=== PATIENT | male | born 1980 | race American Indian/Alaskan Native ===

== ENCOUNTER 2016-05-30 05:59 | Day surgery (SDC) | payer OTHER, MEDICAID ==
[2016-05-30] MEDS ORDERED: LIDOCAINE 1% 5 ML SDV ONE (06:31)
[2016-05-30] MEDS ORDERED: IOPAMIDOL (ISOVUE-300) 150 ML BTL IV ONE (07:11)
[2016-05-30] MEDS ORDERED: BUPIVACAINE/EPI 0.25% 30 ML SDV ONE (07:11)
[2016-05-30] MEDS ORDERED: PROPOFOL 200 MG/20 ML VIAL ONE ×2 (07:13→07:32)
[2016-05-30] MEDS ORDERED: fentaNYL 250 MCG/5 ML INJ ONE (07:14)
[2016-05-30] MEDS ORDERED: ceFAZolin 2 GM/DEXTROSE 100 ML IV ONE (07:30)
[2016-05-30] MEDS ORDERED: fentaNYL 100 MCG/2 ML INJ ONE ×2 (09:31→10:36)
[2016-05-30] MEDS ORDERED: ONDANSETRON 4 MG/2 ML VIAL ONE (09:31)
[2016-05-30] MEDS ORDERED: OXYCODONE/APAP 5/325 TAB ONE (10:45)
--- NOTE | 2016-05-30 12:54 | GOP ---
[f rep st] OPERATIVE REPORT DATE OF OPERATION: 05/30/2016 SURGEON: Bridger Ahuja MD MANDREL MAKER: Key Guido PA-C. ANESTHESIA: General endotracheal. ANESTHESIOLOGIST: Dr. Ramirez. PREOPERATIVE DIAGNOSIS: Biliary colic. POSTOPERATIVE DIAGNOSIS: Acute on chronic cholecystitis. PROCEDURE PERFORMED: Laparoscopic cholecystectomy. FINDINGS: Gallbladder was shriveled and dense, very difficult to retract over the liver proper. The cystic duct appeared dilated and/or absent as it appeared the gallbladder just ended blindly at the junction of the common duct. The cystic duct/infundibulum of the gallbladder was successfully amputated with an Endo-RADHA stapler. SPECIMENS: Gallbladder. ESTIMATED BLOOD LOSS: 10 cc. DESCRIPTION OF PROCEDURE: The patient was greeted in the preoperative suite. Once again, risks, benefits, and alternatives were discussed. Consent was signed. He was then brought back to the operative suite, placed on the OR table in supine position. After all anesthesia machines were on and functioning , a World Health Organization time-out was performed. General endotracheal anesthesia was then induced without incident. Antibiotics were given on-call to the operating room. The patient's abdomen was then widely prepped and draped in typical sterile fashion. I attempted to enter the abdomen via a stab incision in the left upper quadrant but was unsuccessful in obtaining pneumoperitoneum. I then made an infraumbilical incision vertically through which the Veress needle passed and I obtained insufflation and pneumoperitoneum to 15 mmHg CO2, which was well tolerated. Through this, I placed a 10 mm port, visualized the remainder of the abdominal contents which appeared to be normal. I placed 3 additional 5 mm ports, 1 subxiphoid, 2 right upper quadrant, all under direct visualization. I grasped the dome of the gallbladder which again was very shriveled and difficult to retract. Once this was done, I grasped the infundibulum, and via both blunt dissection and electrocautery identified 2 structures leading toward the gallbladder. Again, it appeared that the cystic duct was the exact same size as the infundibulum of the gallbladder and/or absent. I did identify the common duct just adjacent to it. In order to obtain my critical view, I then, in a dome down approach, removed the remainder of the gallbladder off the liver bed. At this point in time, I had 2 and only 2 structures, connecting the gallbladder. The artery was successfully ligated with clips and divided. Again, I identified no other structures leading toward the gallbladder and identified the course of the common hepatic and common bile ducts. I then upsized my subxiphoid port through this. I placed an Endo-RADHA 35 stapler and successfully amputated the gallbladder from its common duct confluence, taking great care not to narrow the common duct. Once this was done , I placed it in an EndoCatch bag and removed it. Hemostasis was achieved in the gallbladder fossa with electrocautery and gentle pressure. The right upper quadrant was irrigated and suctioned noting excellent hemostasis. The infraumbilical port site was then closed with running 0 Vicryl, noting excellent fascial reapproximation. The subxiphoid port was closed in the same fashion. The skin was closed with Monocryl over which Dermabond was placed. The patient was then extubated in the operative suite and taken to the PACU in satisfactory condition. COUNTS: All counts were reported as correct x2. /[id number]/MODL MTDD
== END 2016-05-30 11:30 | disposition home or self-care (01) ==
LOC: FSGY 05:59
PROVIDERS: ATTEND Surgery
PROC: 0FT44ZZ Resection of Gallbladder, Percutaneous Endoscopic Approach (ICD-10-PCS; principal; 2016-05-30 07:30)
DX: K81.2 Acute cholecystitis with chronic cholecystitis (principal); Z86.39 Personal history of other endocrine, nutritional and metabolic disease
CPT/HCPCS: J0690; J2405; J2704; J3010; Q9967

== ENCOUNTER 2016-06-10 13:03 | Inpatient (IN) | payer OTHER, MEDICAID ==
--- NOTE | 2016-06-10 14:13 | EDPHY ---
H & P Stated Complaint: choly 05/30 continued jaundice/elevated liver enzymes ruq abd pain Time Seen by Provider: 06/10/16 14:10 - Personal History Current Tetanus/Diphtheria Vaccine: Yes - Medical/Surgical History Hx Asthma: No Hx Chronic Respiratory Disease: No Hx Diabetes: No Hx Cardiac Disease: No Hx Renal Disease: No Hx Cirrhosis: No Hx Alcoholism: No Hx HIV/AIDS: No Hx Splenectomy or Spleen Trauma: No Other PMH: choly/graves disease - Social History Smoking Status: Never smoked Constitutional: Initial Vital Signs Temperature (C) 36.7 C 06/10/16 13:11 Heart Rate 71 06/10/16 13:11 Respiratory Rate 17 06/10/16 13:11 Blood Pressure 116/68 06/10/16 13:11 O2 Sat (%) 97 06/10/16 13:11 O2 Delivery Mode Room Air Allergies/Adverse Reactions: No Known Allergies Allergy (Verified 06/10/16 13:11) Home Medications: Medication Instructions Recorded Levothyroxine [Synthroid 137 mcg 137 mcg PO DAILY@0600 06/10/16 (*)] Medical Decision Making - Diagnostics Imaging Results: Imaging Impressions Abdomen MRI 06/10/16 14:22 Impression: 1. Status post cholecystectomy with intrahepatic bile duct dilatation and choledocholithiasis. There also features suggestive of left hepatic lobe cholangitis. 2. Mild hepatosplenomegaly. Findings were discussed with Vic Frances MD at 19:34, at 06/10/2016. Imaging: Discussed imaging studies w/ orthopedically impaired teacher Radiologist ED Course/Re-evaluation: CHIEF COMPLAINT: Jaundice, abdominal pain. HISTORY OF PRESENT ILLNESS: The patient is a 36-year-old male status post cholecystectomy 05/30 who presents with jaundiced skin and eyes, RUQ pain, and dysuria. He felt well after the surgery for the first few days. He then became itchy all over. The RUQ pain began to radiate down to his groin and he developed dysuria and tea-colored urine. He denies shortness of breath, vomiting , diarrhea, or other complaints. REVIEW OF SYSTEMS: A 10 point review of systems was performed and is negative with the exception of the elements mentioned in the history of present illness. PHYSICAL EXAM: HR, BP, O2 Sat, RR. Temp noted General Appearance: Alert, well hydrated, appropriate, and non-toxic appearing. Head: Atraumatic without scalp tenderness or obvious injury Eyes: Pupils equal, round, reactive to light and accommodation, EOMI, no trauma , no injection. Ears: Clear bilaterally, no perforation, normal landmarks Nose: Atraumatic, no rhinorrhea, clear. Throat: There is no erythema or exudates, no lesions, normal tonsils, mucus membranes moist. Neck: Supple, 2+ carotid upstroke, nontender, no lymphadenopathy. Respiratory: No retractions, no distress, no wheezes, and no accessory muscle use. Lungs are clear to auscultation bilaterally. Cardiovascular: Regular rate and rhythm, no murmurs, rubs, or gallops. Bilateral carotid, radial, dorsalis pedis, and posterior tibial pulses intact. Good capillary refill all extremities. Gastrointestinal: Abdomen is soft, nontender, non-distended, no masses, no rebound, no guarding, no peritoneal signs. Musculoskeletal: Normal active ROM of all extremities, atraumatic. Neurological: Alert, appropriate, and interactive. The patient has normal DTRs and non-focal cranial nerves, motor, sensory, and cerebellar exam. Skin: No rashes, good turgor, no nodules on palpation. Past medical history: Grave's Disease. Past surgical history: Cholecystectomy. Family history: N/A. Social history: . DIAGNOSTICS/PROCEDURES/CRITICAL CARE TIME: Study: MRCP Indication: Postop pain, jaundice. Results: See Image Results section for official report. The study was read by the radiologist, Dr. Clark. I viewed the images myself on the PACS system. DIFFERENTIAL DIAGNOSIS: The differential diagnosis includes but is not limited to postoperative complication, retained stone, UTI. MEDICAL DECISION MAKIN-year-old male status post cholecystectomy 05/30 presents with jaundice, abdominal pain, and dysuria. I am concerned for a retained stone or other surgical complication. An IV was established and labs ordered. Plan to consult with the patient's surgeon. 1419: Consulted with Dr. Ahuja, surgery. He recommends MRCP. Bilirubin 6.4. AST 269, ALT 498, Alkaline phosphatase 343. Lipase 892. 1724: Dr. Ahuja, surgery, in the ED consulting with the patient. 1934: MRCP results conveyed to me by Dr. Clark, radiology. He reports at least 2 retained stones and intrahepatic ductal dilation. 1939: Consulted with Dr. Ahuja, surgery and notified him of the MRCP results. 1941: Reassessed patient. Discussed results of MRCP with him and answered his questions. - Data Points Laboratory Results: Laboratory Results 06/10/16 14:17 05 14:17 06/10/16 06/10/16 14:17 14:17 WBC 8.00 10^3/uL 10^3/uL (3.80-9.50) RBC 5.26 10^6/uL 10^6/uL (4.40-6.38) Hgb 15.9 g/dL g/dL (13.7-17.5) Hct 45.9 % % (40.0-51.0) MCV 87.3 fL fL (81.5-99.8) MCH 30.2 pg pg (27.9-34.1) MCHC 34.6 g/dL g/dL (32.4-36.7) RDW 13.2 % % (11.5-15.2) Plt Count 335 10^3/uL 10^3/uL (150-400) MPV 9.6 fL fL (8.7-11.7) Neut % (Auto) 62.1 % % (39.3-74.2) Lymph % (Auto) 27.4 % % (15.0-45.0) Gosper % (Auto) 8.3 % % (4.5-13.0) Eos % (Auto) 1.3 % % (0.6-7.6) Baso % (Auto) 0.5 % % (0.3-1.7) Nucleat RBC Rel Count 0.0 % % (0.0-0.2) Absolute Neuts (auto) 4.98 10^3/uL 10^3/uL (1.70-6.50) Absolute Lymphs (auto) 2.19 10^3/uL 10^3/uL (1.00-3.00) Absolute Monos (auto) 0.66 10^3/uL 10^3/uL (0.30-0.80) Absolute Eos (auto) 0.10 10^3/uL 10^3/uL (0.03-0.40) Absolute Basos (auto) 0.04 10^3/uL 10^3/uL (0.02-0.10) Absolute Nucleated RBC 0.00 10^3/uL 10^3/uL (0-0.01) Immature Gran % 0.4 % % (0.0-1.1) Immature Gran # 0.03 10^3/uL 10^3/uL (0.00-0.10) Sodium 140 mEq/L mEq/L (134-144) Potassium 3.0 mEq/L L mEq/L (3.5-5.2) Chloride 109 mEq/L mEq/L (97-110) Carbon Dioxide 20 mEq/l L mEq/l (22-31) Anion Gap 11 mEq/L mEq/L (8-16) BUN 15 mg/dL mg/dL (7-23) Creatinine 0.7 mg/dL mg/dL (0.7-1.3) Estimated GFR > 60 Glucose 79 mg/dL mg/dL (70-100) Calcium 7.5 mg/dL L mg/dL (8.5-10.4) Total Bilirubin 6.4 mg/dL H mg/dL (0.1-1.4) Conjugated Bilirubin 5.4 mg/dL H mg/dL (0.0-0.5) Unconjugated Bilirubin 1.0 mg/dL mg/dL (0.0-1.1) AST 269 IU/L H IU/L (17-59) ALT 498 IU/L H IU/L (21-72) Alkaline Phosphatase 343 IU/L H IU/L (38-126) Total Protein 6.3 g/dL g/dL (6.3-8.2) Albumin 3.7 g/dL g/dL (3.5-5.0) Lipase 892.0 IU/L H IU/L (23-300) Medications Given: Discontinued Medications Fentanyl (Sublimaze) 100 mcg IVP EDNOW ONE Stop: 06/10/16 15:44 Last Admin: 06/10/16 15:50 Dose: 100 mcg Sodium Chloride (Ns) 1,000 mls @ 0 mls/hr IV ONCE ONE PRN Reason: Wide Open Stop: 06/10/16 14:20 Last Admin: 06/10/16 14:23 Dose: 1,000 mls Sodium Chloride (Ns) 1,000 mls @ 0 mls/hr IV ONCE ONE PRN Reason: Wide Open Stop: 06/10/16 14:20 Last Admin: 06/10/16 14:40 Dose: 1,000 mls Departure - Departure Disposition: To OP Cath/Surgery Clinical Impression: Postoperative jaundice Condition: Fair Report Scribed for: Vic Frances Report Scribed by: Marquis Tinajero Date of Report: 06/10/16 Time of Report: 14:41
[2016-06-10] MEDS ORDERED: NS 1,000 ML IV ONE ×2 (14:19)
[2016-06-10 14:28] LABS: % IMMATURE GRANULYOCYTES 0.4 % (0.0-1.1); ABSOLUTE IMMATURE GRANULOCYTES 0.03 10^3/uL (0.00-0.10); ADD DIFF? NO; ADD MORPH? NO; ADD SCAN? NO; ATYPICAL LYMPHOCYTE FLAG 0 (0-99); FRAGMENT RBC FLAG 0 (0-99); HEMATOCRIT 45.9 % (40.0-51.0); HEMOGLOBIN 15.9 g/dL (13.7-17.5); LEFT SHIFT FLG 10 (0-99); LIPEMIA HEMOLYSIS FLAG 90 (0-99); MEAN CELL HEMOGLOBIN 30.2 pg (27.9-34.1); MEAN CELL HEMOGLOBIN CONCENTR. 34.6 g/dL (32.4-36.7); MEAN CELL VOLUME 87.3 fL (81.5-99.8); MEAN PLATELET VOLUME 9.6 fL (8.7-11.7); PLATELET CLUMPS FLAG 0 (0-99); PLATELET COUNT 335 10^3/uL (150-400); RED BLOOD CELL COUNT 5.26 10^6/uL (4.40-6.38); RED CELL DISTRIBUTION WIDTH 13.2 % (11.5-15.2)
[2016-06-10 14:59] LABS: ALANINE AMINOTRANSFERASE 498 IU/L (21-72); ALBUMIN 3.7 g/dL (3.5-5.0); ALKALINE PHOSPHATASE 343 IU/L (38-126); ANION GAP 11 mEq/L (8-16); ASPARTATE AMINOTRANSFERASE 269 IU/L (17-59); BILIRUBIN,TOTAL 6.4 mg/dL (0.1-1.4); BILIRUBIN-CONJUGATED 5.4 mg/dL (0.0-0.5); CALCIUM 7.5 mg/dL (8.5-10.4); CARBON DIOXIDE 20 mEq/l (22-31); CHLORIDE 109 mEq/L (97-110); CREATININE 0.7 mg/dL (0.7-1.3); GLOMERULAR FILTRATION RATE > 60; GLUCOSE 79 mg/dL (70-100); SODIUM 140 mEq/L (134-144); TOTAL PROTEIN 6.3 g/dL (6.3-8.2)
[2016-06-10] MEDS ORDERED: fentaNYL 100 MCG/2 ML INJ IVP ONE (15:43)
[2016-06-10] MEDS ORDERED: fentaNYL 100 MCG/2 ML INJ ONE (15:45)
[2016-06-10] MEDS ORDERED: ACETAMINOPHEN 325 MG TAB PO PRN (17:42)
[2016-06-10] MEDS ORDERED: ONDANSETRON DISINTEGRATING 4 MG TAB PO PRN (17:42)
[2016-06-10] MEDS ORDERED: HYDROmorphONE/DILAUDID 1 MG/ML SYR IVP PRN (17:42)
[2016-06-10] MEDS ORDERED: ONDANSETRON 4 MG/2 ML VIAL IVP PRN (17:42)
[2016-06-10] MEDS ORDERED: D5W 1/2 NS W/ 20 KCl/L 1,000 ML IV SCH (17:45)
--- NOTE | 2016-06-10 18:25 | GHP ---
[f rep st] HISTORY AND PHYSICAL DATE OF ADMISSION: 06/10/2016 CHIEF COMPLAINT: Abdominal pain and jaundice. HISTORY OF PRESENT ILLNESS: This is a 36-year-old male, who underwent a laparoscopic cholecystectom y by myself on May 30. Since that time, he states that he has felt well for the most part, ramez floyd, this past Thursday described some fairly excruciating right upper quadrant abdominal pain for which he called the Call Service. At that point in time, he spoke with 1 of my partners covering call, jerad bhatia asked him to come into the emergency room to be evaluated. The pain subsided, he felt better and decided that he did not want to be evaluated. The pain subsequently recurred last evening and he r eported to Urgent Care earlier today. Per his report, at the urgent care center, liver function enz ymes were performed and showed an elevation of his total bilirubin. I did speak with the urgent car e provider. I asked that he be transferred here. On further evaluation, the patient states that ot her than the pain last Thursday and again last evening, he has felt well. He continues to tolerate a regular diet, but that his does also note that he is jaundiced. He endorses some dark-colored urine. Denies having any acholic stools. His abdomen otherwise is soft, nondistended, nontender at this point in time. He denies having fevers or chills, and otherwise feels well other than the int ermittent abdominal pain and the worrisome jaundice. PAST MEDICAL HISTORY: Significant for Graves disease. PAST SURGICAL HISTORY: Laparoscopic cholecystectomy performed on May 30. CURRENT MEDICATIONS: Synthroid. ALLERGIES: None. REVIEW OF SYSTEMS: A full 10-point review was performed and unless explicitly stated above, is othe rwise negative. PHYSICAL EXAM: VITAL SIGNS: Blood pressure 107/59, heart rate 71, and he is 96% on room air. GENE RAL: He is alert and oriented, in no acute distress. He does appear jaundiced. HEENT: He does jones ve scleral icterus. His extraocular movements are intact. LUNGS: Clear to auscultation bilaterall y. CARDIOVASCULAR: He has a regular rate and rhythm, and he is hemodynamically stable. ABDOMEN: Soft, nondistended, nontender. His laparoscopic incision sites remain covered with Dermabond and ar e clean, dry, and intact. He has no rebound tenderness or guarding. He is relatively nontender to palpation in the right upper quadrant. EXTREMITIES: Warm and well perfused. LABS: White blood cell count 8, no left shift. H and H stable. Chemistries: T-bilirubin is eleva lety at 6, mostly direct at 5.4, his AST and ALT are 269 and 498, and his lipase is also elevated at 892. IMAGING: MRCP pending. ASSESSMENT AND PLAN: A 36-year-old male, status post laparoscopic cholecystectomy with postoperativ e jaundice. I discussed the findings with the patient today. I told him that he will be admitted f or further workup and that the MRCP will be helpful. More than likely, he has a retained stone but we will further delineate the anatomy with the MR. I have also contacted Dr. Franklin of Gastroen terology who will see the patient and more than likely perform the ERCP for what is likely a retaine d stone, but we will continue to manage him as such. All of his questions were answered. I anticip ate that he will be here more than 2 midnights, receiving care. /[id number]/MODL
[2016-06-10 22:09] LABS: APTT 28.4 SEC (23.0-38.0); INR 0.95 (0.83-1.16); PROTIME(PATIENT) 12.6 SEC (12.0-15.0)
[2016-06-10] MEDS: HYDROCODONE/APAP 5/325 TAB PO PRN (22:57)
[2016-06-11 05:15] LABS: % IMMATURE GRANULYOCYTES 0.4 % (0.0-1.1); ABSOLUTE IMMATURE GRANULOCYTES 0.02 10^3/uL (0.00-0.10); ADD DIFF? NO; ADD MORPH? NO; ADD SCAN? NO; ATYPICAL LYMPHOCYTE FLAG 0 (0-99); FRAGMENT RBC FLAG 0 (0-99); HEMATOCRIT 39.7 % (40.0-51.0); HEMOGLOBIN 13.7 g/dL (13.7-17.5); LEFT SHIFT FLG 10 (0-99); LIPEMIA HEMOLYSIS FLAG 90 (0-99); MEAN CELL HEMOGLOBIN 30.2 pg (27.9-34.1); MEAN CELL HEMOGLOBIN CONCENTR. 34.5 g/dL (32.4-36.7); MEAN CELL VOLUME 87.6 fL (81.5-99.8); PLATELET CLUMPS FLAG 0 (0-99); PLATELET COUNT 255 10^3/uL (150-400); RED BLOOD CELL COUNT 4.53 10^6/uL (4.40-6.38); RED CELL DISTRIBUTION WIDTH 13.2 % (11.5-15.2)
[2016-06-11 05:31] LABS: ALBUMIN 4.1 g/dL (3.5-5.0); BILIRUBIN,TOTAL 7.2 mg/dL (0.1-1.4); BILIRUBIN-CONJUGATED 6.1 mg/dL (0.0-0.5); BILIRUBIN-UNCONJUGATED 1.1 mg/dL (0.0-1.1); TOTAL PROTEIN 7.2 g/dL (6.3-8.2)
[2016-06-11] MEDS: LEVOTHYROXINE 137 MCG TAB PO SCH (05:41)
--- NOTE | 2016-06-11 10:06 | SOAPPROG ---
SOAP Progress Note Assessment/Plan: Assessment/Plan: 36 Y M s/p lap elisabet 05/30, now c likely choledocholithiasis. ERCP later today with GI. Continue NPO. S: itchy from jaundice, no pain or nausea now. O: alert, nad, wdwn +scleral icterus ctab rrr abd soft, nt, inc cdi, no erythema 06/11/16 10:05 Objective: Vital Signs Temp Pulse Resp BP Pulse Ox 37.1 C 58 L 20 105/67 98 06/11/16 08:00 06/11/16 08:00 06/11/16 08:00 06/11/16 08:00 06/11/16 08:00 Laboratory Results 06/11/16 04:46 06/10/16 06/11/16 06/12/16 05:59 05:59 05:59 Intake Total 1999 Balance 1999 PT 12.6 SEC (12.0-15.0) 06/10/16 21:50 INR 0.95 (0.83-1.16) 06/10/16 21:50 ICD10 Worksheet Patient Problems: Problems Problem Status Onset Postoperative jaundice Acute
--- NOTE | 2016-06-11 10:57 | PDCONSULT ---
[employer] Note: Patient interviewed and examined. Chart reviewed and dictated. Briefly; 36 yo male with CBD stones s/p lap elisabet and mild hypokalemia. Will recheck BMP and correct K as needed. Schedule for ERCP with IV General anesthesia today at 16: 30. Pernell Franklin MD
--- NOTE | 2016-06-11 11:13 | GCON ---
[f rep st] CONSULTATION GI CONSULTATION DATE OF CONSULTATION: 06/11/2016 REASON FOR CONSULTATION: Jaundice and choledocholithiasis. HISTORY OF PRESENT ILLNESS: The patient is a 36-year-old gentleman who underwent laparoscopic cholecystectomy on May 30. He did well postoperatively , only to return to the hospital yesterday with a several-day history of intermittent severe right upper quadrant abdominal pain and jaundice. MRCP performed last night showed choledocholithiasis and dilated common bile duct. CURRENT MEDICATIONS: Synthroid. ALLERGIES: No known drug allergies. PAST MEDICAL HISTORY: Significant for Graves disease with hypothyroidism. PAST SURGICAL HISTORY: Significant for laparoscopic cholecystectomy performed on May 30. FAMILY HISTORY: Negative for GI malignancies or gallbladder disease. SOCIAL HISTORY: He is . He lives in [place]. He does not smoke tobacco or drink significant quantities of alcohol. REVIEW OF SYSTEMS: Negative for a comprehensive review of systems, other than complaints of right upper quadrant abdominal pain. PHYSICAL EXAMINATION: VITAL SIGNS: On my examination today, temperature 37.1 Celsius; pulse 58, regular; blood pressure 105/67. Respiratory rate was 20. GENERAL: Well-developed, well-nourished gentleman, in no apparent distress, sitting in chair. INTEGUMENT: Jaundiced, otherwise clear. HEENT: Head atraumatic, normocephalic. Pupils equal, round, reactive to light. Sclerae icteric. Nares patent. Mucous membranes moist. Dentition good. NECK: Supple. Trachea was midline. LYMPHATICS: No cervical or axillary adenopathy. PULMONARY: Lungs are clear to percussion/auscultation. No wheezes or rhonchi. CARDIOVASCULAR: Regular rhythm and rate. Normal S1, S2, without murmur. Peripheral pulses strong bilaterally. No pedal edema. GASTROINTESTINAL: Positive bowel sounds. Well-healing trocar incisions, without infection or weeping. There is mild tenderness in the right upper quadrant. No mass. No periumbilical tenderness or rebound. No fluid wave noted. EXTREMITIES: Without deformity. NEURO: Patient was alert and oriented x3. There are no focal neurologic deficits. LABS: White count is 5.35, hemoglobin 13.7, hematocrit 39.7, platelets 255, 000. Pro time 12.6. INR 0.95, PTT 30.2. Electrolytes normal, except for potassium 3.0 and CO2 20. Total bilirubin 7.1, conjugated 6.1, unconjugated 1.1. AST 305, ALT 569. Alp 396, lipase 795. MRCP showed dilated common bile duct with choledocholithiasis and intrahepatic biliary dilation as well. ASSESSMENT: 1. Choledocholithiasis. 2. Mild subclinical gallstone pancreatitis. 3. Hypothyroidism. 4. Low potassium. RECOMMENDATIONS: 1. Repeat electrolytes. 2. N.p.o. 3. ERCP with propofol anesthesia at 4:30 this afternoon. /[id number]/MODL MTDD
[2016-06-11 11:42] LABS: ANION GAP 12 mEq/L (8-16); CALCIUM 9.7 mg/dL (8.5-10.4); CARBON DIOXIDE 23 mEq/l (22-31); CHLORIDE 103 mEq/L (97-110); CREATININE 0.9 mg/dL (0.7-1.3); GLOMERULAR FILTRATION RATE > 60; GLUCOSE 112 mg/dL (70-100); SODIUM 138 mEq/L (134-144)
[2016-06-11] MEDS ORDERED: GLUCAGON,HUMAN RECOMBINANT 1 MG VIAL ONE (15:30)
[2016-06-11] MEDS ORDERED: IOTHALAMATE MEG (CONRAY) 50 ML VIAL IV ONE (15:31)
[2016-06-11] MEDS ORDERED: MIDAZOLAM 2 MG/2 ML VIAL ONE (17:13)
[2016-06-11] MEDS ORDERED: PROPOFOL/EMULSION 500 MG/50 ML BOTTLE IV ONE (17:17)
[2016-06-11] MEDS ORDERED: fentaNYL 250 MCG/5 ML INJ ONE (17:17)
[2016-06-11] MEDS ORDERED: ONDANSETRON 4 MG/2 ML VIAL ONE (17:18)
[2016-06-11] MEDS ORDERED: LIDOCAINE 2% 5 ML SDV ONE (17:18)
[2016-06-11] MEDS ORDERED: DEXAMETHASONE 4 MG/ML VIAL ONE (17:18)
[2016-06-11] MEDS ORDERED: ROCURONIUM 100 MG/10 ML VIAL ONE (17:18)
--- NOTE | 2016-06-11 18:21 | POSTOPPROG ---
Post Op Note Date of Operation: 06/11/16 Surgeon: Pernell Franklin Service Consultant: None Anesthesiologist: Dr. Joya Anesthesia: GET(General Endotracheal), Other (Specify) Pre-op Diagnosis: CBD stone Post-op Diagnosis: 1. Same. 2. 12 mm papillotomy with balloon extraction of CBD stones Indication: CBD stone with biliary obstruction Procedure: ERCP, Papillotomy, and CBD stone retraction with balloon catheter. Findings: Dilated CBD with small CBD stones. Inf/Abcess present in the surg proc area at time of surgery?: No EBL: Minimal Total fluids administered: None Complications: None Specimen(s): None.
[2016-06-11] MEDS: HYDROCODONE/APAP 5/325 TAB PO PRN (20:26)
--- NOTE | 2016-06-12 04:01 | GPN ---
[f rep st] PROCEDURE NOTE DATE OF PROCEDURE: 06/11/2016 PROCEDURE PERFORMED: Endoscopic retrograde cholangiopancreatography with papillotomy and common bile duct stone extraction. PREOPERATIVE DIAGNOSIS: Common bile duct stone and biliary obstruction. POSTOPERATIVE DIAGNOSES: 1. Common bile duct stone and biliary obstruction. 2. Status post 12 mm papillotomy. 3. Extraction of small distal common bile duct stones with balloon-tipped catheter. CLINICAL HISTORY/INDICATIONS: The patient is a 36-year-old gentleman who was readmitted after recent laparoscopic cholecystectomy with right upper quadrant abdominal pain, elevated lipase, and bilirubin, and dilated common bile duct with common bile duct stone seen on MRCP, set up for ERCP today for a papillotomy and extraction of common bile duct stones. PERMIT: Patient was informed of indication for procedure. Risks and benefits of procedure were outlined by me including risks of bowel perforation and post ERCP pancreatitis. Informed consent was obtained. PREOPERATIVE MEDICATIONS: General anesthesia per Dr. Joya. PROCEDURE FINDINGS: [id number]-[id number] endoscope was advanced into the oropharynx, passed down the esophagus through the gastric lumen, across the pyloric channel , and positioned across from the papilla of Vater without difficulty after the patient received satisfactory general anesthesia and tracheal intubation. The papilla of Vater measured approximately 12 mm in diameter. The papilla and common bile duct was freely cannulated with a Tapertome papillotome and advanced in the common bile duct with a Glidewire without difficulty. Injection of a total of 30 cc of 50% Omnipaque was used to opacify. I dilated biliary tree (both intra and extrahepatic) and sludge/small gallstones were visualized on fluoroscopy. A 12 mm papillotome was performed with the ERBE electrocautery unit and the papillotome was exchanged over the Glidewire for a 9 to 12 mm diameter balloon-tipped biliary catheter. This was advanced into the common hepatic duct, inflated to 12 mm, and the bile duct was stripped twice with passage of sludge and stone fragments. This balloon-tipped catheter was exchanged for a 12 to 15 mm diameter balloon-tipped catheter. This was also advanced up into the biliary tree to the level of the common hepatic duct inflated to 15 mm and then deflated down to 12 mm so they could easily be passed across the papilla of Vater. Sizing papillotomy at 12 mm. Further fluoroscopy revealed no retained common bile duct stones. Scope was removed. Patient tolerated procedure well and was sent to recovery room in satisfactory condition. IMAGING: I personally reviewed and interpreted the fluoroscopy of the biliary tree during this procedure without assistance of a radiologist. IMPRESSION: Choledocholithiasis with obstruction of distal common bile duct, status post papillotomy and extraction of common bile duct stones with good drainage of biliary tree at end of procedure. RECOMMENDATIONS: 1. Clear liquids today. 2. Repeat CBC, lipase, and comprehensive metabolic panel in the a.m. 3. Will follow with you. /[id number]/MODL MTDD
[2016-06-12 05:10] LABS: % IMMATURE GRANULYOCYTES 0.3 % (0.0-1.1); ABSOLUTE IMMATURE GRANULOCYTES 0.02 10^3/uL (0.00-0.10); ADD DIFF? NO; ADD MORPH? NO; ADD SCAN? NO; ATYPICAL LYMPHOCYTE FLAG 10 (0-99); FRAGMENT RBC FLAG 0 (0-99); HEMOGLOBIN 13.7 g/dL (13.7-17.5); LEFT SHIFT FLG 10 (0-99); LIPEMIA HEMOLYSIS FLAG 90 (0-99); MEAN CELL HEMOGLOBIN 30.3 pg (27.9-34.1); MEAN CELL HEMOGLOBIN CONCENTR. 34.3 g/dL (32.4-36.7); MEAN CELL VOLUME 88.5 fL (81.5-99.8); PLATELET CLUMPS FLAG 0 (0-99); PLATELET COUNT 277 10^3/uL (150-400); RED BLOOD CELL COUNT 4.52 10^6/uL (4.40-6.38); RED CELL DISTRIBUTION WIDTH 13.2 % (11.5-15.2)
[2016-06-12 05:28] LABS: ALANINE AMINOTRANSFERASE 571 IU/L (21-72); ALBUMIN 4.3 g/dL (3.5-5.0); ALKALINE PHOSPHATASE 407 IU/L (38-126); ANION GAP 10 mEq/L (8-16); ASPARTATE AMINOTRANSFERASE 255 IU/L (17-59); CALCIUM 9.9 mg/dL (8.5-10.4); CARBON DIOXIDE 24 mEq/l (22-31); CHLORIDE 103 mEq/L (97-110); CREATININE 0.9 mg/dL (0.7-1.3); GLOMERULAR FILTRATION RATE > 60; GLUCOSE 109 mg/dL (70-100); POTASSIUM 4.9 mEq/L (3.5-5.2); SODIUM 137 mEq/L (134-144); TOTAL PROTEIN 7.6 g/dL (6.3-8.2)
[2016-06-12 05:35] LABS: BILIRUBIN-CONJUGATED 2.4 mg/dL (0.0-0.5); BILIRUBIN-UNCONJUGATED 1.6 mg/dL (0.0-1.1)
[2016-06-12] MEDS: LEVOTHYROXINE 137 MCG TAB PO SCH (06:14)
[2016-06-12 07:40] VITALS: BP 112/62; PULSE 69; RESP 16; TEMP 97.7; O2SAT 94
--- NOTE | 2016-06-12 08:51 | SOAPPROG ---
SOAP Progress Note Assessment/Plan: Assessment/Plan: - 36yo M PPD#1 s/p ERCP for retained stone - Doing well, LFTs downtrending appropriately after stone extraction - Plan home today, will have him follow up with me next week with repeat LFTs to ensure continued downtrend - Appreciate GI assistance with ERCP 06/12/16 08:48 Subjective: Doing great, denies pain Objective: Vital Signs Temp Pulse Resp BP Pulse Ox 36.5 C 69 16 112/62 94 06/12/16 07:39 06/12/16 07:39 06/12/16 07:39 06/12/16 07:39 06/12/16 07:39 Laboratory Results 06/12/16 04:43 06/12/16 04:43 06/11/16 06/12/16 06/13/16 05:59 05:59 05:59 Intake Total 1999 1649 Balance 19990 PT 12.6 SEC (12.0-15.0) 06/10/16 21:50 INR 0.95 (0.83-1.16) 06/10/16 21:50 ICD10 Worksheet Patient Problems: Problems Problem Status Onset Choledocholithiasis Acute Postoperative jaundice Acute - ICD10 Problem Qualifiers (1) Choledocholithiasis
--- NOTE | 2016-06-12 09:45 | SOAPPROG ---
SOAP Progress Note Assessment/Plan: Assessment: 1. CBD stones; removed with ERCP/papillotomy and balloon extraction yesterday. 2. LFT's falling. 3. Elevated Lipase, falling. Plan: OK to D/C home today from GI prospective with outpatient F/U with surgeon. Pernell Franklin MD 06/12/16 09:41 Subjective: CC: CBD stone. Interval HPI: Patient feeling fine. No abdominal pain, nausea or pruritus. Objective: Vital Signs Temp Pulse Resp BP Pulse Ox 36.5 C 69 16 112/62 94 06/12/16 07:39 06/12/16 07:39 06/12/16 07:39 06/12/16 07:39 06/12/16 07:39 Laboratory Results 06/12/16 04:43 06/12/16 04:43 06/11/16 06/12/16 06/13/16 05:59 05:59 05:59 Intake Total 1999 1650 Balance 19990 PT 12.6 SEC (12.0-15.0) 06/10/16 21:50 INR 0.95 (0.83-1.16) 06/10/16 21:50 Physical Exam - Physical Exam General Appearance: alert, no apparent distress Respiratory: lungs clear Cardiac/Chest: regular rate, rhythm Abdomen: non-tender, soft Skin: warm/dry ICD10 Worksheet Patient Problems: Problems Problem Status Onset Choledocholithiasis Acute Postoperative jaundice Acute
--- NOTE | 2016-06-12 15:41 | GDS ---
[f rep st] DISCHARGE SUMMARY DISCHARGE DIAGNOSIS: Choledocholithiasis. HOSPITAL COURSE: The patient was admitted from the emergency department on the evening of the 2nd w ith elevated liver function tests and an MRCP showing retained common duct stones within the common bile duct. At that point in time, he was stable and showing no signs of cholangitis. He was subseq uently brought into the hospital that evening. Gastroenterology consultation was successful, and th e patient was taken to ERCP on the evening of the 3rd where stone extraction was successful. Afterw ards his diet was advanced which was well tolerated. Liver function tests were downtrending, and he was subsequently sent home in stable condition. DISPOSITION: Home. FOLLOWUP: He will follow up with me in 1 week. He will have liver function tests drawn prior to hi s visit to ensure that they are downtrending successfully. /[id number]/MODL
== END 2016-06-12 09:41 | disposition home or self-care (01) | DRG 444 ==
LOC: OBSVTOIN 17:45 → F3E 20:01
PROVIDERS: ADMIT Surgery; ATTEND Surgery
PROC: 0FC94ZZ Extirpation of Matter from Common Bile Duct, Percutaneous Endoscopic Approach (ICD-10-PCS; principal; 2016-06-11 16:45)
DX: K80.51 Calculus of bile duct without cholangitis or cholecystitis with obstruction (principal); K85.10 Biliary acute pancreatitis without necrosis or infection; E05.00 Thyrotoxicosis with diffuse goiter without thyrotoxic crisis or storm; E03.9 Hypothyroidism, unspecified; E87.6 Hypokalemia
CPT/HCPCS: 96374; J1100; J1610; J2250; J2405; J2704; J3010; Q9961